=== PATIENT | male | born 1935 | race Two or more races ===

== ENCOUNTER 2017-08-25 09:54 | Emergency (ER) | payer OTHER ==
[~2017-08-25] VITALS: Ht 182.9 cm; Wt 76.2 kg
[2017-08-25] MEDS ORDERED: TIAZAC240 MG PO (10:32)
[2017-08-25] MEDS ORDERED: TOPROL XL50 M1 PO (10:33)
[2017-08-25] MEDS ORDERED: METFORMIN HCL850 MG PO (10:33)
[2017-08-25] MEDS ORDERED: GEMFIBROZIL600 MG PO (10:35)
[2017-08-25] MEDS ORDERED: ASA-EC81 MG PO (10:35)
[2017-08-25] MEDS ORDERED: SYNTHROID50 MCG PO (10:36)
[2017-08-25] MEDS ORDERED: TESSALON PERLE100 M1 PO (11:45)
[2017-08-25] MEDS ORDERED: ZITHROMAX500 MG PO (11:45)
[2017-08-25] MEDS ORDERED: ALAVERT10 M1 PO (11:45)
== END 2017-08-25 11:50 | disposition home or self-care (01) ==
LOC: ER 09:54
DX: J06.9 Acute upper respiratory infection, unspecified (principal)

== ENCOUNTER 2020-01-05 16:45 | Inpatient (IN) | payer OTHER ==
[~2020-01-05] VITALS: Ht 170.2 cm; Wt 79.4 kg
[~2020-01-05 16:45] MED LIST: ALAVERT10 M1 PO; ASA-EC81 MG PO; GEMFIBROZIL600 MG PO; METFORMIN HCL850 MG PO; SYNTHROID50 MCG PO; TESSALON PERLE100 M1 PO; TIAZAC240 MG PO; TOPROL XL50 M1 PO; ZITHROMAX500 MG PO
--- NOTE | 2020-01-05 16:57 | NUR ---
PTE REFIERE CAIDA EN LA CASA REFIERE DISLOCACION DE HOMBRO MARIBEL SE SUSAN S/V YSE UBIAC EN AREA DE OBSERVACION
--- NOTE | 2020-01-05 17:56 | NUR ---
IV LINE IS STARTED IN PATIENT'S LEFT HAND. IMG OF MORPHINE IV IS ADMINISTERED ACCORDING TO DOCTOR'S ORDERS.
--- NOTE | 2020-01-05 20:09 | NUR ---
LABS ARE TAKEN FROM PATIENT'S RIGHT HAND IN ORDER TO COMPLETE BLOOD SAMPLES. PATIENT IS PLACED IN BED WITH RAILINGS UP AND UNDER OBSERVATION FOR CHANGES IN HIS CONDITION.
[2020-01-09] MEDS ORDERED: PERCOCET 5-3251 EACH PO (08:14)
[2020-01-09] MEDS ORDERED: DUI500 PO (08:14)
[2020-01-09] MEDS ORDERED: [UNRECOGNIZED DRUG - SUPPLY] (08:16)
== END 2020-01-09 11:26 | disposition home or self-care (01) | DRG 494 ==
LOC: ER 16:45 → SURH 22:29
PROVIDERS: Orthopaedic Surgery; ADMIT Internal Medicine; ATTEND Internal Medicine
PROC: 0LQ20ZZ Repair Left Shoulder Tendon, Open Approach (ICD-10-PCS; 2020-01-08)
PROC: 0PSG36Z Reposition Left Humeral Shaft with Intramedullary Internal Fixation Device, Percutaneous Approach (ICD-10-PCS; principal; 2020-01-08 13:00)
DX: S42.362A Displaced segmental fracture of shaft of humerus, left arm, initial encounter for closed fracture (principal); S46.012A Strain of muscle(s) and tendon(s) of the rotator cuff of left shoulder, initial encounter; S40.022A Contusion of left upper arm, initial encounter; I10 Essential (primary) hypertension; E11.65 Type 2 diabetes mellitus with hyperglycemia; E03.8 Other specified hypothyroidism; E78.49 Other hyperlipidemia; Z20.828 Contact with and (suspected) exposure to other viral communicable diseases

== ENCOUNTER → 2020-05-06 13:24 | Outpatient (CLI) | payer OTHER ==
[~2020-05-06 13:24] MED LIST changes: +ALDACTONE25 MG PO; +ALENDRONATE SOD35 MG; +BACTRIM DS TAB1 EACH; +CLOTRIMAZOLE-BE15 G1; +DUI500 PO; +FINASTERIDE5 MG; +GLIMEPIRIDE4 M1; +LATANOPROST2.5 ML; +LEVOTHYROXINE25 MCG PO; +LONITEN2.5 MG; +MAXIMUM D3325 MCG; +METFOR PO; +METFORMIN HCL850 M1; +METOPROLOL SUCC50 MG; +PERCOCET 5-3251 EACH PO; +PRAVACHOL PO; +PRAVASTATIN SOD40 MG; +ZESTORETIC 20-1 EAC1 PO; +[UNRECOGNIZED DRUG - OTHER]; +[UNRECOGNIZED DRUG - OTHER] PO; +[UNRECOGNIZED DRUG - SUPPLY]
== END | disposition home or self-care (01) ==
LOC: EKG 13:24
PROVIDERS: ATTEND Urology
DX: I10 Essential (primary) hypertension (principal)

== ENCOUNTER 2020-05-06 13:54 | Outpatient (CLI) | payer OTHER ==
[~2020-05-06 13:54] MED LIST changes: -ALDACTONE25 MG PO; -ALENDRONATE SOD35 MG; -BACTRIM DS TAB1 EACH; -CLOTRIMAZOLE-BE15 G1; -FINASTERIDE5 MG; -GLIMEPIRIDE4 M1; -LATANOPROST2.5 ML; -LEVOTHYROXINE25 MCG PO; -LONITEN2.5 MG; -MAXIMUM D3325 MCG; -METFOR PO; -METFORMIN HCL850 M1; -METOPROLOL SUCC50 MG; -PRAVACHOL PO; -PRAVASTATIN SOD40 MG; -ZESTORETIC 20-1 EAC1 PO; -[UNRECOGNIZED DRUG - OTHER]; -[UNRECOGNIZED DRUG - OTHER] PO
[2020-05-12] MEDS ORDERED: LEVOTHYROXINE25 MCG PO (14:20)
[2020-05-12] MEDS ORDERED: ZESTORETIC 20-1 EAC1 PO (14:20)
[2020-05-12] MEDS ORDERED: TIAZAC240 MG PO (14:20)
[2020-05-12] MEDS ORDERED: ALDACTONE25 MG PO (14:21)
[2020-05-12] MEDS ORDERED: PRAVACHOL PO (14:21)
[2020-05-12] MEDS ORDERED: [UNRECOGNIZED DRUG - OTHER] PO (14:22)
[2020-05-12] MEDS ORDERED: METFOR PO (14:23)
[2020-05-12] MEDS ORDERED: [UNRECOGNIZED DRUG - OTHER] (14:23)
[2020-05-12] MEDS ORDERED: GEMFIBROZIL600 MG PO (14:24)
== END 2020-05-06 14:10 | disposition home or self-care (01) ==
LOC: RAD 13:54
PROVIDERS: ATTEND Urology
DX: I10 Essential (primary) hypertension (principal)

== ENCOUNTER 2020-05-14 09:57 | Inpatient (IN) | payer OTHER ==
[~2020-05-14] VITALS: Ht 182.9 cm; Wt 77.1 kg
[~2020-05-14 09:57] MED LIST changes: +ALDACTONE25 MG PO; +LEVOTHYROXINE25 MCG PO; +METFOR PO; +PRAVACHOL PO; +ZESTORETIC 20-1 EAC1 PO; +[UNRECOGNIZED DRUG - OTHER]; +[UNRECOGNIZED DRUG - OTHER] PO
[2020-05-14] MEDS ORDERED: GLIMEPIRIDE4 M1 (15:33)
[2020-05-14] MEDS ORDERED: CLOTRIMAZOLE-BE15 G1 (15:33)
[2020-05-14] MEDS ORDERED: ALENDRONATE SOD35 MG (15:33)
[2020-05-14] MEDS ORDERED: FINASTERIDE5 MG (15:33)
[2020-05-14] MEDS ORDERED: BACTRIM DS TAB1 EACH (15:33)
[2020-05-14] MEDS ORDERED: PRAVASTATIN SOD40 MG (15:34)
[2020-05-14] MEDS ORDERED: MAXIMUM D3325 MCG (15:34)
[2020-05-14] MEDS ORDERED: METOPROLOL SUCC50 MG (15:34)
[2020-05-14] MEDS ORDERED: LONITEN2.5 MG (15:34)
[2020-05-14] MEDS ORDERED: METFORMIN HCL850 M1 (15:34)
[2020-05-14] MEDS ORDERED: LATANOPROST2.5 ML (15:36)
== END 2020-05-15 09:11 | disposition home or self-care (01) | DRG 714 ==
LOC: CIR.AMB 09:57 → O/R 15:29 → SURH 15:29
PROVIDERS: ADMIT Urology; ATTEND Urology
PROC: 0VT08ZZ Resection of Prostate, Via Natural or Artificial Opening Endoscopic (ICD-10-PCS; principal; 2020-05-14 10:15)
DX: N40.1 Benign prostatic hyperplasia with lower urinary tract symptoms (principal); N41.1 Chronic prostatitis; R33.8 Other retention of urine; I10 Essential (primary) hypertension; E11.9 Type 2 diabetes mellitus without complications; E03.9 Hypothyroidism, unspecified; Z79.84 Long term (current) use of oral hypoglycemic drugs